=== PATIENT | female | born 1980 | race Caucasian/White ===

== ENCOUNTER 2017-06-23 14:49 | Inpatient (IN) | payer BC ==
[~2017-06-23] VITALS: Ht 157.5 cm; Wt 65.8 kg
[2017-06-23 15:14] VITALS: BP 137/77
--- NOTE | 2017-06-23 15:17 | NUR ---
37Y/F C/O LEFT BREAST PAIN WITH LARGE LUMP FOR 7 DAYS. PT STATES THE LUMP OPENED UP IN TWO PLACES AND STARTED TO DRAIN PINK PUS-LIKE SUBSTANCE YESTERDAY AND TODAY. DENIES FEVER. PT ADMITS SHE WENT TO URGENT CARE 1 WEEK AGO WHEN IT STARTED AND WAS PRESCRIBED ABX. PTS SYMPTOMS RESOLVED BUT CAME BACK 3 DAYS LATER. PATIENT STATES PAIN OF 9/10 AT THIS TIME; VSS; PATIENT POSITIONED FOR COMFORT; HOB ELEVATED; BEDRAILS UP X1; BED DOWN. ER MD MADE AWARE OF PT STATUS.
--- NOTE | 2017-06-23 15:20 | NUR ---
Patient being evaluated by physician at bedside.
[2017-06-23] MEDS ORDERED: NACL 0.9% 1,000 ML IV ONE ×2 (15:35→17:55)
[2017-06-23] MEDS ORDERED: VANCOMYCIN 1,000 MG in DEXTROSE 5% 250 ML IV ONE (15:35)
[2017-06-23] MEDS ORDERED: diphenhydrAMINE 50 MG/ML VIAL IVP ONE (15:35)
[2017-06-23] MEDS ORDERED: MORPHINE SULFATE 5 MG/ML VIAL IVP ONE ×2 (15:35→17:20)
[2017-06-23] MEDS ORDERED: PIPERACILLIN/TAZOBACTAM 3.375 GM in DEXTROSE 5% 50 ML IV ONE (15:35)
[2017-06-23] MEDS ORDERED: PIPERACILLIN/TAZOBACTAM 3.375 GM VIAL IV ONE ×2 (15:48→21:41)
[2017-06-23] MEDS ORDERED: VANCOMYCIN 1,000 MG VIAL ONE (15:48)
[2017-06-23 15:54] LABS: BASOPHILS # (AUTO) 0.1 K/uL (0.00-0.22); BASOPHILS % (AUTO) 1.5 % (0.0-2.0); EOSINOPHILS # (AUTO) 0.2 K/uL (0-0.4); EOSINOPHILS % (AUTO) 2.8 % (0.0-4.0); HEMATOCRIT 33.7 % (36-48); HEMOGLOBIN 11.4 g/dL (12.0-16.0); LYMPHOCYTES # (AUTO) 1.6 K/uL (2.5-16.5); LYMPHOCYTES % (AUTO) 19.9 % (20.5-51.1); MEAN CORPUSCULAR HEMOGLOBIN 32 pg (27-31); MEAN CORPUSCULAR HGB CONC 34 g/dL (33-37); MEAN CORPUSCULAR VOLUME 93.8 fL (80-94); MONOCYTES # (AUTO) 0.8 K/uL (0.8-1.0); MONOCYTES % (AUTO) 9.8 % (1.7-9.3); NEUTROPHILS # (AUTO) 5.2 K/uL (1.8-7.7); PLATELET COUNT (AUTO) 230 K/uL (140-450); RED BLOOD CELL COUNT(AUTO) 3.59 MIL/uL (4.20-5.40); RED CELL DISTRIBUTION WIDTH 12.7 % (11.6-13.7); WHITE BLOOD COUNT (AUTO) 7.9 K/uL (4.8-10.8)
[2017-06-23 16:02] LABS: PROTHROMBIN TIME 13.9 secs (10.8-13.4)
[2017-06-23 16:04] LABS: ANION GAP 11.2 (8-16); CARBON DIOXIDE 28.1 mmol/L (21-32); CREATININE 0.6 mg/dL (0.6-1.3); POTASSIUM 3.3 mmol/L (3.5-5.1)
[2017-06-23 16:10] LABS: TOTAL BILIRUBIN 0.3 mg/dL (0.0-1.0)
[2017-06-23] MEDS ORDERED: POTASSIUM CHLORIDE 10 MEQ TABER PO ONE ×3 (16:25→21:22)
[2017-06-23 16:35] LABS: APPEARANCE,URINE CLEAR (CLEAR); BILIRUBIN,URINE NEGATIVE (NEGATIVE); BLOOD, URINE TRACE-I (NEGATIVE); COLOR,URINE YELLOW (YELLOW); LEUKOCYTE ESTERASE ,URINE NEGATIVE (NEGATIVE); NITRITE, URINE NEGATIVE (NEGATIVE); UGLUCOSE NEGATIVE (NEGATIVE)
[2017-06-23 16:48] LABS: RBC,URINE 0-5 (RARE) /HPF (0-5); WBC,URINE 0-5 (RARE) /HPF (0-5)
[2017-06-23] MEDS ORDERED: LIDOCAINE 1% 500 MG/50 ML VIAL INJ SCH ×2 (17:20)
[2017-06-23] MEDS ORDERED: LIDOCAINE MPF 1% - **ER/OR** 15 ML ONE (17:27)
[2017-06-23] MEDS ORDERED: MORPHINE SULFATE 4 MG/ML SYR ONE ×2 (17:36→20:09)
[2017-06-23] MEDS ORDERED: CLINDAMYCIN 900 MG in DEXTROSE 5% 100 ML IV ONE (17:50)
[2017-06-23] MEDS ORDERED: ONDANSETRON 4 MG/2 ML VIAL IVP PRN (18:10)
[2017-06-23] MEDS ORDERED: ACETAMINOPHEN 325 MG TAB PO PRN (18:10)
[2017-06-23] MEDS ORDERED: CLINDAMYCIN 900 MG/6 ML VIAL IV ONE (18:17)
--- NOTE | 2017-06-23 18:37 | NUR ---
Patient will be admitted to care of dr. verma. Admited to tele . Will go to room 106a. Belongings list completed. Report to leon mejias.
[2017-06-23 18:40] VITALS: BP 109/70
--- NOTE | 2017-06-23 18:40 | NUR ---
PATIENT ARRIVED ON UNIT VIA [facility] WITH ER NURSE. PATIENT ALERT AND ABLE TO VERBALIZE NEEDS. AMBULATED TO BED FROM [facility]. PATIENT WITH DRESING TO LEFT BREAST. C/O 5/10 PAIN TO SITE . IV SITE TO RIGHT AC 20G STILL INSUFISNG NS 1000ML WIDE OPEN BOLUS ALONG WITH 165ML/HR OF VANCO AND TO FOLLOW WITH CLEOCIN ORDERED. MRSA SWAB COLLECTED. TELE MONITOR CONNECTED. SPOUSE AT BEDSIDE. ORIENTED TO ROOM. OFFERED PATIENT FOOD PATIENT ON REGULAR DIET.VSS. DISCUSSED PLAN OF CARE WITH PATIENT AT BEDSIDE. CALL LIGHT WITHIN REACH. WILL CONT TO MONITOR.
[2017-06-23 18:49] LABS: CHOL/HDL RATIO 2.9 (1-4.5); FREE T4 (FREE THYROXINE) 1.21 ng/dL (0.76-1.46); MAGNESIUM 1.7 mg/dL (1.8-2.4); PHOSPHORUS 3.3 mg/dL (2.5-4.9)
--- NOTE | 2017-06-23 19:00 | NUR ---
ENDORSED REPORT AT BEDSIDE TO SENIOR ORACLE DATABASE DEVELOPER NURSE FOR CONTINUITY OF CARE. PATIENT STABLE.
[2017-06-23] MEDS ORDERED: MORPHINE SULFATE 4 MG/ML SYR IVP PRN (19:05)
[2017-06-23 19:07] LABS: THYROID STIMULATING HORMONE 0.91 uIU/mL (0.34-3.74)
[2017-06-23 19:13] LABS: BARBITURATE, URINE NEG. ng/ml (NEG <=200); BENZODIAZEPINE, URINE NEG. ng/mL (NEG <=200); CANNABINOID, URINE NEG. ng/mL (NEG <=50); COCAINE, URINE NEG. ng/mL (NEG <=300); OPIATE, URINE POS. ng/mL (NEG <=2000); PHENCYCLIDINE SCREEN,URINE NEG. ng/mL (NEG <=25)
--- NOTE | 2017-06-23 19:30 | NUR ---
RECEIVED PT FROM FRANTZ RN PT AAOX4 AMBULATORY IV ON RT AC INFUSING WELL ANTIBIOTICS FROM ER, ON TELEMETRY ST ON LEFT BREAST CELLULITIS AND 2 OPEN WOUND AFTER BEEN DRAINAGE IN ER, PICTURE WILL BE TAKEN, PT IS ;ORIENTED TO THE FLOOR CALL LIGHT WITHIN REACH
--- NOTE | 2017-06-23 19:31 | NUR ---
THE TWO OPEN WOUND ON LEFT BREAST HAVE STRIP PACKAGE INSIDE AND THERE ARE DRAINING SEROSANGUINEOUS
[2017-06-23] MEDS ORDERED: MAGNESIUM OXIDE 400 MG TAB PO ONE (19:50)
--- NOTE | 2017-06-23 20:09 | NUR ---
DR LEON IS HERE AND ORDER TO GIVE MORPHINE 2 MG IVP, PHARMACY TO VERIFY
[2017-06-23] MEDS ORDERED: CLINDAMYCIN 600 MG in DEXTROSE 5% 50 ML IV SCH (21:00)
[2017-06-23] MEDS: PIPER/TAZO 3.375GM/D5W PREMIX 50 ML IV SCH ×2 (21:00→21:49)
[2017-06-23] MEDS: DOCUSATE SODIUM 100 MG GELCAP PO SCH (21:28)
[2017-06-24] VITALS: BP 119/65
[2017-06-24] MEDS: MORPHINE SULFATE 4 MG/ML SYR IVP PRN ×2 (00:16→04:37)
--- NOTE | 2017-06-24 00:45 | NUR ---
PT AMBULATES TO THE RESTROOM, VOIDING WELL, NOT PAIN NOTED ON TELEMETRY SR
[2017-06-24] MEDS: HYDROcodone/APAP 7.5/325 MG 1 TAB PO PRN ×4 (02:18→18:35)
[2017-06-24 04:00] VITALS: BP 108/64
--- NOTE | 2017-06-24 04:00 | NUR ---
SPONGE BATH GIVEN, LINEN CHANGED ON TELE SR
[2017-06-24] MEDS ORDERED: PIPERACILLIN/TAZOBACTAM 3.375 GM VIAL IV ONE (04:24)
[2017-06-24] MEDS: PIPER/TAZO 3.375GM/D5W PREMIX 50 ML IV SCH ×2 (04:40→12:11)
[2017-06-24] MEDS ORDERED: CLINDAMYCIN 600 MG/4 ML VIAL ONE (05:04)
--- NOTE | 2017-06-24 05:22 | NUR ---
AFTER PAIN MEDIC GIVEN PT SLEEPS QUIET NOT DISTRESS NOTED
[2017-06-24] MEDS: CLINDAMYCIN 600 MG in DEXTROSE 5% 50 ML IV SCH ×2 (05:46→12:48)
[2017-06-24] MEDS ORDERED: MORPHINE SULFATE 4 MG/ML SYR IVP PRN (06:00)
--- NOTE | 2017-06-24 06:10 | NUR ---
PT RESTING ON BED SLEEPING DR BENDER WAS INFORMED ABOUT PT PAIN MEDICATION
--- NOTE | 2017-06-24 07:30 | NUR ---
ENDORSEMENT RECEIVED FROM LICENSED NURSING ASSISTANT NURSE. PATIENT AWAKE, ALERT. RESPIRATION EVEN, UNLABOR ON ROOM AIR. SKIN DRY AND WARM. IV PATENT AND INTACT. LEFT BREAST WOUND WAS COVERED WITH DRESSING. COMPLAINED OF LEFT BREAST PAIN 09/15, WILL MEDICATE PER ORDER. DENIED SOB, N/V AT THIS TIME. PLAN OF CARE WAS DISCUSSED WITH PATIENT. BED AT LOW POSITION, SIDE RAILS UP. CALL LIGHT WITHIN REACH
[2017-06-24 08:00] VITALS: BP 130/79
[2017-06-24] MEDS: DOCUSATE SODIUM 100 MG GELCAP PO SCH (08:42)
[2017-06-24] MEDS ORDERED: LACTOBACILLUS RHAMNOSUS GG 1 EACH CAP PO SCH (09:00)
--- NOTE | 2017-06-24 10:00 | NUR ---
PATIENT AWAKE, ALERT. PAIN MED WAS GIVEN PER ORDER. PATIENT AMBULATES AROUND THE HALLWAY WITH FAMILY, STEADY GAIT. NO DISTRESS NOTED AT THIS TIME
--- NOTE | 2017-06-24 11:40 | NUR ---
PATIENT AWAKE, ALERT. RESPIRATION EVEN, UNLABOR ON ROOM AIR. NO DISTRESS NOTED AT THIS TIME. FAMILY AT BEDSIDE. AUTOMOTIVE DISMANTLER WAS REMOVED PER ORDER. CALL LIGHT WITHIN REACH
--- NOTE | 2017-06-24 14:01 | NUR ---
PATIENT HAS BEEN SCREENED AND CATEGORIZED LOW NUTRITION RISK. PATIENT WILL BE SEEN WITHIN 7 DAYS OF ADMISSION. 06/30/[address]
--- NOTE | 2017-06-24 15:16 | NUR ---
PATIENT AWAKE, ALERT, WATCHING TV COMFORTABLY. RESPIRATION EVEN, UNLABOR ON ROOM AIR. NO DISTRESS NOTED AT THIS TIME. CALL LIGHT WITHIN REACH
--- NOTE | 2017-06-24 15:18 | NUR ---
RECEIVED A CALL FROM [employer]REAT SUPPORT SPECIALIST, THIS MORNING. FROM [facility], THE PATIENT HAS BEEN APPROVED FOR 2 DAYS TIL THE . IF PATIENT HERE ON THE , FAX REVIEW TO [phone] PHONE [phone] VALERIO
[2017-06-24 16:00] VITALS: BP 111/54
[2017-06-24 17:08] LABS: BASOPHILS # (AUTO) 0.1 K/uL (0.00-0.22); BASOPHILS % (AUTO) 1.4 % (0.0-2.0); EOSINOPHILS # (AUTO) 0.4 K/uL (0-0.4); EOSINOPHILS % (AUTO) 6.4 % (0.0-4.0); HEMATOCRIT 30.7 % (36-48); HEMOGLOBIN 10.3 g/dL (12.0-16.0); LYMPHOCYTES # (AUTO) 1.3 K/uL (2.5-16.5); LYMPHOCYTES % (AUTO) 23.1 % (20.5-51.1); MEAN CORPUSCULAR HEMOGLOBIN 32 pg (27-31); MEAN CORPUSCULAR HGB CONC 34 g/dL (33-37); MEAN CORPUSCULAR VOLUME 93.9 fL (80-94); MONOCYTES # (AUTO) 0.7 K/uL (0.8-1.0); MONOCYTES % (AUTO) 11.9 % (1.7-9.3); NEUTROPHILS # (AUTO) 3.3 K/uL (1.8-7.7); NEUTROPHILS % (AUTO) 57.2 % (42.2-75.2); PLATELET COUNT (AUTO) 226 K/uL (140-450); RED BLOOD CELL COUNT(AUTO) 3.28 MIL/uL (4.20-5.40); RED CELL DISTRIBUTION WIDTH 13.3 % (11.6-13.7); WHITE BLOOD COUNT (AUTO) 5.8 K/uL (4.8-10.8)
[2017-06-24 17:29] LABS: ANION GAP 11.4 (8-16); CARBON DIOXIDE 27.2 mmol/L (21-32); CREATININE 0.6 mg/dL (0.6-1.3); POTASSIUM 3.6 mmol/L (3.5-5.1)
[2017-06-24 17:32] LABS: MAGNESIUM 1.4 mg/dL (1.8-2.4); PHOSPHORUS 3.6 mg/dL (2.5-4.9)
--- NOTE | 2017-06-24 17:45 | NUR ---
DR. CRUMP WAS MADE AWARE OF MG LEVEL OF 1.4, WILL MEDICATE PER ORDER
[2017-06-24 17:54] LABS: PROTHROMBIN TIME 10.7 secs (10.8-13.4)
--- NOTE | 2017-06-24 18:00 | NUR ---
PATIENT AWAKE, ALERT, EATING DINNER AND WATCHING TV COMFORTABLY. RESPIRATION EVEN, UNLABOR ON ROOM AIR. IV PATENT AND INTACT. NO DISTRESS NOTED AT THIS TIME. FAMILY AT BEDSIDE. CALL LIGHT WITHIN REACH
[2017-06-24] MEDS ORDERED: MAG SULF 2000 MG/WATER PREMIX 100 ML IV ONE (18:20)
--- NOTE | 2017-06-24 19:19 | NUR ---
ENDORSEMENT GIVEN TO THE INSURANCE COORDINATOR NURSE. PATIENT IS STABLE AT THIS TIME
--- NOTE | 2017-06-24 19:20 | NUR ---
RECD. RESTING IN BED, AWAKE, A/OX4. MG RIDER INFUSING AT 25 ML/HR, RIGHT AC G20. LEFT BREAST INCISION COVERED WITH DRESSING DRY AND INTACT. ON BILATERAL LEG SEQUENTIALS. PLAN OF CARE FOR THE SHIFT DISCUSSED. VERBALIZED UNDERSTANDING. PAIN IN THE LEFT BREAST 03/18, WAS MEDICATED BY AM NURSE, WILL MEDICATE ORDERED. BOY FRIEND AT THE BEDSIDE.
--- NOTE | 2017-06-24 19:35 | NUR ---
WANTS TO GO HOME KIMBERLY, ONE OF HER CHILDREN IS SICK. EXPLAINED THAT HER MAGNESIUM IS LOW AND SHE NEEDS TO HAVE THE MG RIDER, BESIDES SHE NEEDS ANTIBIOTICS TO PREVENT INFECTION. STILL VERY INSISTENT THAT SHE WANTS TO TAKE GOOD CARE OF HER CHILD AND SHE WANTS TO GO HOME, WILL SIGN AMA FORM.
--- NOTE | 2017-06-24 19:45 | NUR ---
VS TAKEN - T - 97.6, BP - 114/56, RR - 18, O2 SAT - 95%. DENIES PAIN 0/10. SIGNED AMA PAPERS. INFORMED DR. BENDER.
--- NOTE | 2017-06-24 19:50 | NUR ---
IV DISCONTINUED. PATIENT INSTRUCTED TO GATHER ALL HER BELONGINGS AND SINCE WILL LEAVE AMA, NOBODY WILL WHEELED HER OUT. VERBALIZED UNDERSTANDING.
--- NOTE | 2017-06-24 20:00 | NUR ---
AMBULATED IN STABLE CONDITION WITH MALE FRIEND TO LOBBY TO GO HOME AGAINST MEDICAL ADVICE.
[2017-06-25 06:19] LABS: HEPATITIS A ANTIBODY IGM Negative (Negative); HEPATITIS B CORE AB TOTAL Negative (Negative); HEPATITIS B SURFACE ANTIBODY Non Reactive (.); HEPATITIS B SURFACE ANTIGEN Negative (Negative)
--- NOTE | 2017-06-25 08:47 | NUR ---
WOUND CARE EVALUATION NOT DONE, PT. DISCHARGED.
[2017-06-25 12:31] LABS: FOLIC ACID 7.1 ng/mL (>3.0)
--- NOTE | 2017-06-25 14:54 | NUR ---
CM NOTE DISCHARGE SUMMARY FAXED TO [facility] / FAX# [phone]
== END 2017-06-24 20:00 | disposition left against medical advice (07) | DRG 600 ==
LOC: MED 14:49 → MTU 18:16
PROVIDERS: ADMIT Family Medicine Sports Medicine; ATTEND Family Medicine Sports Medicine
PROC: 0H9U0ZZ Drainage of Left Breast, Open Approach (ICD-10-PCS; principal; 2017-06-23)
DX: N61.1 Abscess of the breast and nipple (principal); E44.0 Moderate protein-calorie malnutrition; D64.9 Anemia, unspecified; E83.42 Hypomagnesemia; E87.6 Hypokalemia; F17.210 Nicotine dependence, cigarettes, uncomplicated; N61.0 Mastitis without abscess; F11.90 Opioid use, unspecified, uncomplicated; Z53.21 Procedure and treatment not carried out due to patient leaving prior to being seen by health care provider
CPT/HCPCS: 36415; 71045; 71260; 76705; 80048; 80053; 80305; 81001; 82150; 82550; 82553; 82607; 82728; 82746; 83036; 83540; 83605; 83690; 83735; 83880; 84100; 84439; 84443; 84484; 85025; 85045; 85610; 85730; 86704; 86706; 86708; 86709; 86803; 87040; 87070; 87075; 87081; 87186; 87340; 93005; 96365; 96366; 96367; 99285; J1200; J2001; J2270; J2543; J3370; J3475; J3490; J7030; J7060; Q0092; Q9967

== ENCOUNTER 2017-11-17 01:53 | Emergency (ER) | payer BC, OTHER ==
[~2017-11-17] VITALS: Ht 154.9 cm; Wt 68.0 kg
[2017-11-17 02:03] VITALS: BP 119/91
--- NOTE | 2017-11-17 02:07 | NUR ---
PT AMBULATED TO LOBY WITH VSS.
--- NOTE | 2017-11-17 04:26 | NUR ---
PT TO ER BED 10
[2017-11-17 04:45] VITALS: BP 117/71
--- NOTE | 2017-11-17 04:45 | NUR ---
37/F CAME IN WITH FAMILY/FRIEND, C/O 12/16 RLE PAIN, X3 DAYS. APPROXIMATELY 1.5 INCH X 1.5 INCH RED RAISED ABSCESS/CELLULITIS WITH PUS, SURROUNDING REDNESS AND SWELLING. RLE EDEMA PITTING +2. PT DENIES TRAUMA, INJURY OR FEELING INSECT BITE. PT DENIES CP, SOB, N/V. PT REPORTS SUBJECTIVE FEVER, AFEBRILE AT THIS TIME. AOX4, AMBULATORY, RR EVEN AND UNLABORED. DENIES MED HX DENIES RX
--- NOTE | 2017-11-17 04:46 | NUR ---
DRESSING ON RLE IN PLACE.
--- NOTE | 2017-11-17 05:45 | NUR ---
PATIENT LEFT WITHOUT BEING SEEN BY DR. PORTILLO. NO FURTHER CARE PROVIDED FOR PATIENT.
== END 2017-11-17 05:45 | disposition left against medical advice (07) ==
LOC: MED 01:53
DX: L02.415 Cutaneous abscess of right lower limb (principal); Z53.21 Procedure and treatment not carried out due to patient leaving prior to being seen by health care provider

== ENCOUNTER 2019-11-23 22:37 | Observation (INO) | payer BC, OTHER ==
[~2019-11-23] VITALS: Ht 154.9 cm; Wt 72.6 kg
[2019-11-23 22:42] VITALS: BP 157/113
--- NOTE | 2019-11-23 22:45 | NUR ---
ambulated to bed 3 with steady gait.
[2019-11-23] MEDS ORDERED: ASPIRIN 81 MG TAB.CHEW PO ONE (22:50)
--- NOTE | 2019-11-23 22:50 | NUR ---
39 YO F BIB SELF FOR C/O CP X 1 WEEK, NON RADIATING. 8/10 PRESSURE. PT AAOX4, FOLLOWING COMMANDS, NSR, PALPABLE EQUAL PULSES. LUNGS CLEAR EVEN UNLABORED. ABD SOFT NON DISTENDED. DENIES N/V/D. SKIN INTACT. GURNEY LOCKED IN LOWEST POSITION WILL CONTINUE TO OBSERVE
--- NOTE | 2019-11-23 23:15 | NUR ---
EKG PERFORMED AT BEDSIDE. EKG READS SINUS RHYTHM @ 80
[2019-11-23 23:28] LABS: BASOPHILS % (AUTO) 0.2 % (0.0-2.0); EOSINOPHILS # (AUTO) 0.1 K/uL (0-0.4); EOSINOPHILS % (AUTO) 0.9 % (0.0-4.0); HEMOGLOBIN 12.6 g/dL (12.0-16.0); LYMPHOCYTES # (AUTO) 1.4 K/uL (2.5-16.5); LYMPHOCYTES % (AUTO) 13.3 % (20.5-51.1); MEAN CORPUSCULAR HEMOGLOBIN 32 pg (27-31); MEAN CORPUSCULAR HGB CONC 33 g/dL (33-37); MEAN CORPUSCULAR VOLUME 95.3 fL (80-94); MONOCYTES # (AUTO) 0.7 K/uL (0.8-1.0); MONOCYTES % (AUTO) 7.1 % (1.7-9.3); NEUTROPHILS # (AUTO) 8.2 K/uL (1.8-7.7); NEUTROPHILS % (AUTO) 78.5 % (42.2-75.2); PLATELET COUNT (AUTO) 219 K/uL (140-450); RED BLOOD CELL COUNT(AUTO) 3.99 MIL/uL (4.20-5.40); RED CELL DISTRIBUTION WIDTH 12.9 % (11.6-13.7); WHITE BLOOD COUNT (AUTO) 10.4 K/uL (4.8-10.8)
[2019-11-23] MEDS ORDERED: ONDANSETRON 4 MG/2 ML VIAL IVP ONE (23:30)
[2019-11-23] MEDS ORDERED: MORPHINE SULFATE 4 MG/ML SYR IVP ONE (23:30)
[2019-11-23 23:44] LABS: ALBUMIN 3.2 g/dL (3.4-5.0); ANION GAP 10.7 (8-16); CARBON DIOXIDE 28.7 mmol/L (21-32); CREATININE 0.6 mg/dL (0.6-1.3); POTASSIUM 4.4 mmol/L (3.5-5.1); TOTAL BILIRUBIN 0.3 mg/dL (0.0-1.0)
[2019-11-24] MEDS ORDERED: NACL 0.9% 1,000 ML IV ONE
[2019-11-24] MEDS ORDERED: HYDROmorphone PFS 2 MG/ML SYR IVP ONE ×3 (00:40→02:40)
[2019-11-24] MEDS ORDERED: metroNIDAZOLE 500 MG/NS PREMIX 100 ML IV ONE (02:15)
[2019-11-24] MEDS ORDERED: cefTRIAXone 1,000 MG VIAL ONE (02:17)
[2019-11-24] MEDS ORDERED: KETOROLAC 30 MG/ML VIAL IVP ONE (02:20)
[2019-11-24 02:50] LABS: PROTHROMBIN TIME 9.6 secs (10.8-13.4)
[2019-11-24] MEDS ORDERED: ONDANSETRON 4 MG/2 ML VIAL IVP PRN (03:05)
[2019-11-24] MEDS ORDERED: MORPHINE SULFATE 4 MG/ML SYR IVP PRN (03:05)
[2019-11-24] MEDS ORDERED: HYDROcodone/APAP 5/325 MG 1 TAB TAB PO PRN (03:05)
[2019-11-24] MEDS ORDERED: ACETAMINOPHEN 325 MG TAB PO PRN (03:05)
--- NOTE | 2019-11-24 03:17 | NUR ---
pt resting in [facility]; pt states pt @ 07/16, tolerable. denies n/v/d. will continue to observe.
--- NOTE | 2019-11-24 03:37 | NUR ---
JACK COVID SWAB COLLECTED AND WALKED TO LAB.
--- NOTE | 2019-11-24 04:45 | NUR ---
RECEIVED CONTINUITY OF CARE FROM MIGUEL REYES. PT IS RESTING IN BED BREATHING SPONTANEOUSLY ON ROOM AIR. PT IS A/OX4, SKIN IS WARM, DRY, INTACT. IV SITE IN RIGHT UPPER ARM, 22G, ASYMPTOMATIC, INTACT, AND PATENT. PT IS ABLE TO MAKE NEEDS KNOW. DISCUSSED PLAN OF CARE WITH PT. ORIENTED PT TO ROOM, CALL LIGHT, AND STAFF. MRSA SCREEN COMPLETE. NS INFUSING AT 60ML/HR. SAFETY PRECAUTIONS IN PLACE. CALL LIGHT WITHIN REACH. WILL CONTINUE TO MONITOR.
[2019-11-24] MEDS ORDERED: PIPERACILLIN/TAZOBACTAM 2.25 GM VIAL IV ONE (04:53)
--- NOTE | 2019-11-24 04:54 | NUR ---
Patient will be admitted to care of . Admited to [facility]. Will go to room 125A. Belongings list completed. Report to Luis REYES. Addendum: 11/24/19 at 0501 by LOLITA ADMITTED TO DR. WERNER
[2019-11-24] MEDS: NACL 0.9% 1,000 ML IV SCH ×2 (05:25→15:49)
[2019-11-24] MEDS: PIPERACILLIN/TAZOBACTAM 2.25 GM in DEXTROSE 5% 50 ML IV SCH ×3 (05:38→21:16)
--- NOTE | 2019-11-24 06:39 | NUR ---
MEDICATED PT FOR PAIN PER ORDER. WILL CONTINUE TO MONITOR.
--- NOTE | 2019-11-24 06:46 | NUR ---
SPOKE WITH NURSE GAGE AT [facility] IN [place] AND CONFORMED THAT PT IS RECEIVING 1202MG METHADONE DAILY. LAST DOSE WAS GIVEN ON 11/23/2019. Addendum: 11/24/19 at 0700 by Luis Paige RN CORRECT METHADONE DOSE IS 120MG DAILY.
[2019-11-24] MEDS ORDERED: DOL10 PO (06:52)
--- NOTE | 2019-11-24 07:20 | NUR ---
RECEIVED PATIENT FROM NIGHT NURSE. PATIENT AWAKE, ALERT, ORIENTED X4. ABLE TO MAKE NEEDS KNOWN. RESP EVEN AND UNLABORED ON ROOM AIR. PATIENT C/O PAIN TO ABD. WILL MEDICATE APPROPRIATELY. IV ACCESS INTACT AND PATENT INFUSING WELL. PLAN OF CARE DISCUSSED WITH PATIENT. PATIENT VERBALIZED UNDERSTANDING. SAFETY MEASURES IN PLACE, CALL LIGHT WITHIN REACH. WILL CONTINUE TO MONITOR.
[2019-11-24 08:00] VITALS: BP 106/70
--- NOTE | 2019-11-24 08:50 | NUR ---
PATIENT HAS BEEN SCREENED AND CATEGORIZED LOW NUTRITION RISK. PATIENT WILL BE SEEN WITHIN 7 DAYS OF ADMISSION. 11/30/[address]
[2019-11-24] MEDS: HYDROmorphone 1 MG/ML AMP IVP PRN ×4 (09:17→21:19)
--- NOTE | 2019-11-24 09:23 | NUR ---
PATIENT C/O SEVERE PAIN TO ABD. MORPHINE GIVEN PREVIOUSLY AND NOT ABLE TO GIVE JUST YET. DR FAUSTIN WAS CALLED AND RECEIVED TELEPHONE ORDER TO D/C MORPHINE 4MG IVP AND GIVE DILAUDID 1MG IVP PRN Q4H FOR SEVERE PAIN. TELEPHONE ORDER READ BACK AND CONFIRMED. CARRIED OUT.
--- NOTE | 2019-11-24 11:45 | NUR ---
PATIENT RESTING IN BED, PAIN IS TOLERABLE. DR WINTERS CONSULT FOR ACUTE CHOLECYSTITIS. PATIENT IS MADE AWARE OF THE CONSULTATION AND WILL FOLLOW UP WITH DR. WINTERS. RESP EVEN AND UNLABORED. PATIENT AMBULATED TO THE BATHROOM WITH STEADY GAIT. ABLE TO MAKE NEEDS KNOWN. CALL LIGHT WITHIN REACH. WILL CONTINUE TO MONITOR.
--- NOTE | 2019-11-24 13:50 | NUR ---
PT GIVEN DILAUDID FOR SEVERE PAIN TO ABD 9/10 WITH FACIAL GRIMACE. DISTRACTION ACTIVITIES AND DEEP BREATHING ENCOURAGED. PATIENT VERBALIZED UNDERSTANDING. CALL LIGHT WITHIN REACH. WILL CONTINUE TO MONITOR.
--- NOTE | 2019-11-24 14:13 | NUR ---
DISCHARGE PLANNING: THIS IS A 39 Y/O FEMALE PATIENT FROM HOME, WHO CAME IN DUE TO RUQ AND RIGHT MID BACK PAIN. PAST MEDICAL HISTORY INCLUDE METHADONE USE. INITIAL DIAGNOSIS OF ACUTE CHOLECYSTITIS. ABDOMINAL US SHOWED CHOLELITHIASIS WITH CIRCUMFERENTIAL GALLBLADDER WALL THICKENING SUSPICIOUS FOR ACUTE CHOLECYSTITIS. COMMON BILE DUCT WAS MILDLY DILATED MEASURING 7MM. CURRENT LABS INCLUDE WBC 10.4, H/H 12.6/38.0, NA/K 137/4.4, BUN/CREA 9/0.6, LIPASE 43, ALB 3.2, AST/ALT 54/101. ON ZOSYN. SURGICAL CONSULT IN PLACE, NOT SEEN YET. DC PLAN PENDING ON THE PATIENT'S RESPONSE TO TREATMENT. Addendum: 11/24/19 at 1431 by Kaya Schmidt CM PER M[employer] CHILD STUDY TEAM DIRECTOR, PATIENT'S INSURANCE NOW IS IEHP DIRECT. Addendum: 11/24/19 at 1436 by Kaya Schmidt CM PER DR. WERNER WILL KEEP PATIENT ON OBS FOR NOW AND WILL EVALUATE TOMORROW. Addendum: 11/25/19 at 1317 by Kaya Schmidt CM CURRENTLY IN OR FOR [facility]ZA UNDER DR. BARBER Addendum: 11/25/19 at 1517 by Kaya Schmidt CM PER DR. WERNER, WILL KEEP ON OBS. PLAN IS TO DC PATIENT TOMORROW.
[2019-11-24 16:00] VITALS: BP 130/74
--- NOTE | 2019-11-24 18:04 | NUR ---
PATIENT WENT TO RAD FOR CT ABD/PELV W/O CONTRAST. PATIENT LEFT IN STABLE CONDITION
--- NOTE | 2019-11-24 18:25 | NUR ---
PATIENT CAME BACK FROM CT IN STABLE CONDITION. NO NOTED DISTRESS AT THIS TIME. RESP EVEN AND UNLABORED. CALL LIGHT WITHIN REACH. WILL CONTINUE TO MONITOR.
--- NOTE | 2019-11-24 19:25 | NUR ---
ENDORSED PATIENT TO NIGHT NURSE. PATIENT IN STABLE CONDITION.
--- NOTE | 2019-11-24 19:26 | NUR ---
RECEIVED REPORT FROM AM RN FOR CONTINUITY OF CARE. PT IS STABLE CALM IN BED. WILL CONTINUE WITH POC.
--- NOTE | 2019-11-24 21:30 | NUR ---
PT HAD BELONGINGS DROPPED OFF IN LOBBY BY FRIEND/BOYFRIEND WHICH INCLUDED BAG OF CHOCOLATES, NEW PJ, SOCKS, SMALL BOTTLE OF LOTION, SHAMPOO AND CONDITION AND TOOTHBRUSH KIT. PT C/O PAIN 8/10 TO UPPER ABDOMINAL AREA. PT WAS GIVEN DILAUDID 1MG PER MD ORDER AT 2130. CONTINUES TO RECEIVE IVF AND TOLERATING IVPB ANTIBIOTIC WITH NO ISSUES. SAFETY MEASURES IN PLACE WILL CONTINUE TO MONITOR, B/P 124/82, 84, 98% RA.
--- NOTE | 2019-11-24 23:08 | NUR ---
PT IS RESTING IN BED IN NO DISTRESS. CALL LIGHT WITHIN REACH. WILL CONTINUE TO MONITOR.
[2019-11-25] VITALS: BP 129/72
[2019-11-25] MEDS: HYDROmorphone 1 MG/ML AMP IVP PRN ×4 (01:48→21:00)
--- NOTE | 2019-11-25 02:00 | NUR ---
PT C/O ABDOMINAL PAIN 10/16, DILAUDID 1 MG IVP GIVEN AT 0148 PER MD ORDER. V/S: 132/75, 82. PT EDUCATED ON ALTERNATIVE PAIN MGMT MEASURES. SAFETY MEASURES IN PLACE.
[2019-11-25] MEDS: PIPERACILLIN/TAZOBACTAM 2.25 GM in DEXTROSE 5% 50 ML IV SCH ×3 (04:08→20:59)
--- NOTE | 2019-11-25 04:40 | NUR ---
PT IS RESTING IN BED, TOLERATING IVPB WITH NO ISSUES. MUSCLES RELAXED. WILL CONTINUE TO MONITOR.
[2019-11-25 05:38] LABS: BASOPHILS % (AUTO) 0.3 % (0.0-2.0); EOSINOPHILS # (AUTO) 0.1 K/uL (0-0.4); EOSINOPHILS % (AUTO) 1.2 % (0.0-4.0); HEMATOCRIT 33.6 % (36-48); HEMOGLOBIN 11.3 g/dL (12.0-16.0); LYMPHOCYTES # (AUTO) 1.6 K/uL (2.5-16.5); LYMPHOCYTES % (AUTO) 19.8 % (20.5-51.1); MEAN CORPUSCULAR HEMOGLOBIN 32 pg (27-31); MEAN CORPUSCULAR HGB CONC 34 g/dL (33-37); MONOCYTES # (AUTO) 0.8 K/uL (0.8-1.0); MONOCYTES % (AUTO) 9.7 % (1.7-9.3); NEUTROPHILS # (AUTO) 5.6 K/uL (1.8-7.7); PLATELET COUNT (AUTO) 205 K/uL (140-450); RED BLOOD CELL COUNT(AUTO) 3.54 MIL/uL (4.20-5.40); RED CELL DISTRIBUTION WIDTH 12.8 % (11.6-13.7); WHITE BLOOD COUNT (AUTO) 8.1 K/uL (4.8-10.8)
[2019-11-25 05:57] LABS: ALBUMIN 2.6 g/dL (3.4-5.0); ANION GAP 11.9 (8-16); CARBON DIOXIDE 24.7 mmol/L (21-32); CREATININE 0.5 mg/dL (0.6-1.3); POTASSIUM 3.6 mmol/L (3.5-5.1); TOTAL BILIRUBIN 0.3 mg/dL (0.0-1.0)
--- NOTE | 2019-11-25 06:34 | NUR ---
RESTING NO C/O AT THIS TIME. ALL NEEDS MET. SAFETY MEASURES IN PLACE. PT AMBULATED TO RESTROOM X 3 WITH STEADY GAIT. WILL CONTINUE TO MONITOR.
[2019-11-25] MEDS: NACL 0.9% 1,000 ML IV SCH ×2 (06:36→15:15)
--- NOTE | 2019-11-25 07:24 | NUR ---
REPORT GIVEN TO AM RN FOR CONTINUITY OF CARE. PT IS STABLE LAYING IN BED IN NO DISTRESS
--- NOTE | 2019-11-25 07:25 | NUR ---
RECEIVED REPORT FROM NIGHT NURSE FOR CONTINUITY OF CARE, PT IS STABLE, NO SIGNS OF DISTRESS NOTED, PT ASLEEP, RESPIRATIONS ARE EVEN AND UNLABORED ON ROOM AIR, PT HAS RIGHT UA 22G IV INFUSING NS AT 80ML/H, PT NPO FOR SURGERY TODAY, BED IN LOW POSITION, SAFETY MEASURES IN PLACE, CALL LIGHT WITHIN REACH,
[2019-11-25 08:00] VITALS: BP 122/64
--- NOTE | 2019-11-25 08:45 | NUR ---
ADMINISTERED DILAUDID FOR 7/10 PAIN OF SHARP UPPER ABD PAIN THAT RADIATES TO BACK, MEDICATION EDUCATION PROVIDED, PT VERBALIZED UNDERSTANDING, PT TOLERATED WELL, PT IS STABLE, NO SIGNS OF DISTRESS NOTED, CALL LIGHT WITHIN REACH.
--- NOTE | 2019-11-25 09:50 | NUR ---
PT OFF UNIT FOR SURGERY.
[2019-11-25] MEDS ORDERED: ROCURONIUM 50 MG/5 ML VIAL IV ONE (12:11)
[2019-11-25] MEDS ORDERED: SUGAMMADEX SODIUM 200 MG/2 ML VIAL IV ONE (12:11)
[2019-11-25] MEDS ORDERED: DEXAMETHASONE 4 MG/ML VIAL ONE (12:11)
[2019-11-25] MEDS ORDERED: ONDANSETRON 4 MG/2 ML VIAL ONE (12:11)
[2019-11-25] MEDS ORDERED: MIDAZOLAM 2 MG/2 ML VIAL ONE (12:11)
[2019-11-25] MEDS ORDERED: fentaNYL citrate 0.05 MG/ML VIAL ONE (12:11)
[2019-11-25] MEDS ORDERED: DESFLURANE 240 ML BTL INH ONE (12:11)
[2019-11-25] MEDS ORDERED: PROPOFOL 200 MG/20 ML VIAL IV ONE (12:11)
[2019-11-25] MEDS ORDERED: LIDOCAINE MPF 2% 100 MG/5 ML VIAL INJ ONE (12:11)
[2019-11-25] MEDS ORDERED: BUPIVACAINE-MPF 0.25% 30 ML VIAL INJ ONE (12:17)
[2019-11-25] MEDS ORDERED: LIDOCAINE 1% 500 MG/50 ML VIAL ONE (12:17)
--- NOTE | 2019-11-25 12:37 | NUR ---
LATE ENTRY--CONFRIMED WITH RN NORMAL SALINE END TIME IS 0100 AND METRONIDAZOLE END TIME IS 0315.
[2019-11-25] MEDS: LACTATED RINGERS 1,000 ML IV SCH ×2 (12:58→21:01)
[2019-11-25] MEDS ORDERED: HYDROmorphone 1 MG/ML AMP IVP PRN ×2 (13:00)
[2019-11-25] MEDS ORDERED: ONDANSETRON 4 MG/2 ML VIAL IVP PRN (13:00)
[2019-11-25] MEDS ORDERED: MEPERIDINE 25 MG/ML SYR IVP PRN (13:00)
--- NOTE | 2019-11-25 13:16 | NUR ---
0950 PT OFF UNIT FOR SURGERY
[2019-11-25] MEDS: HYDROmorphone PFS 2 MG/ML SYR ONE ×4 (14:09→14:40)
--- NOTE | 2019-11-25 15:05 | NUR ---
PT BACK IN THE ROOM FROM SURGERY, PT HAS A LEFT FOOT IV 22G INFUSING NORMAL SALINE, PT HAS 4 ABDOMINAL INCISION CLOSED WITH DERMABOND, OPEN TO AIR, PT IS STABLE, NO SIGNS OF RESPIRATORY DISTRESS NOTED, WILL CONTINUE TO MONITOR VITALS SIGNS PER PROTOCOL.
--- NOTE | 2019-11-25 15:21 | NUR ---
ADMINISTERED SCHEDULED MEDICATION, MEDICATION EDUCATION PROVIDED, PT IS STABLE, NO SIGNS OF DISTRESS NOTED, CALL LIGHT WITHIN REACH.
[2019-11-25 16:00] VITALS: BP 124/75
--- NOTE | 2019-11-25 16:06 | NUR ---
ADMINISTERED DILAUDID FOR PAIN 10/10 FOR ABDOMINAL SURGICAL SITE, MEDICATION EDUCATION PROVIDED, PT TOLERATED WELL, PT IS STABLE, CALL LIGHT WITHIN REACH.
--- NOTE | 2019-11-25 18:45 | NUR ---
NOTIFIED DR GUNTER PT IS CONCERN SHE IS NOT RECEIVING METHADONE SHE IS EXPERIENCING WITHDRAWALS AND DID NOT NOTIFIED NURSE OR DOCTOR ON ADMISSION THAT IF SHE STOPS RECEIVING METHADONE FOR 3 DAYS SHE GETS DROP FROM THE PROGRAM AND WOULD HAVE TO RE-APPLY AND THAT IT IS A LONG PROCESS. PT IS ALSO EXPERIENCING GAS PAIN AFTER HER SURGERY. RECEIVED TORB FROM DR GUNTER TO RESUME METHADONE AND GIVE GAS X PRN Q6H FOR GAS PAIN, WILL INPUT ORDER AND CARRY IT OUT.
--- NOTE | 2019-11-25 19:30 | NUR ---
ENDORSE PT TO NIGHT NURSE FOR CONTINUITY OF CARE, PT IS STABLE
[2019-11-25] MEDS: SIMETHICONE 40 MG/0.6 ML PO PRN (20:09)
--- NOTE | 2019-11-25 20:10 | NUR ---
RECEIVED BEDSIDE REPORT EARLIER FROM JUMANA REGARDING THE PT FOR CONTINUITY OF CARE. PT IS S/P LAP CHOLECYSTECTOMY WITH 4 LAP SITES, ALL C/D/I. NO BLEEDING NOTED. PT IS A/A/OX4, LAYING IN BED COMPLAINING THAT SHE HAS ABDOMINAL PAIN AND COMPLAINING THAT NO ONE CAME TO HELP HER RIGHT AWAY AND STATED " I URINATED IN MY CUPS AND I THROW THE WATER FROM THE CUP ON THE FLOOR". I SPOKE TO THE PT AND TOLD HER TO CALM DOWN AND I WILL REVIEW HER MEDS AND I WILL GIVE THE PRN MEDS IF ITS DUE. PT REQUESTED TO HAVE HER DILAUDID.PT MADE AWARE THAT HER DILAUDID IS NOT DUE YET FOR ANOTHER HOUR AND INFORMED THE PT IF SHE WANT SHE CAN HAVE THE NORCO. PT AGREED AND GAVE HER THE NORCO & MYLICON ORDERED. OTHERWISE NO OTHER COMPLAIN. NOT IN ANY DISTRESS. EDUCATED THE PT THAT SHE NEED TO WALK AROUND AND ALSO TO USE THE INCENTIVE SPIROMETRY Q HOUR WHEN AWAKE. PT VERBALIZED UNDERSTANDING WITH THE POC. IVF INFUSING ORDERED. CALL LIGHT WITHIN REACH.
--- NOTE | 2019-11-25 22:00 | NUR ---
MEDICATED PT EARLIER WITH DILAUDID ORDERED AND PER PT REQUEST. PT IS ASLEEP AT THIS TIME. VISIBLE CHEST RISE AND FALL NOTED. SAFETY MEASURES IN PLACED.
[2019-11-26] VITALS: BP 120/73
--- NOTE | 2019-11-26 | NUR ---
VITAL SIGNS STABLE, AFEBRILE, SATING 95% ON RA. NO COMPLAIN OF PAIN AT THIS TIME. PT ASLEEP WITH VISIBLE CHEST RISE AND FALL NOTED.
[2019-11-26] MEDS: HYDROmorphone 1 MG/ML AMP IVP PRN ×2 (01:01→07:34)
[2019-11-26] MEDS: SIMETHICONE 40 MG/0.6 ML PO PRN ×2 (02:13→12:53)
--- NOTE | 2019-11-26 02:21 | NUR ---
MEDICATED PT FOR PAIN AGAIN. PT AWAKE AND SITTING UP. CALLED C/O GAS PAIN, PRN MYLICON GIVEN ORDERED. PT VERBALIZED SHE GOT OUT OF BED AND WALKED AROUND THE ROOM ONCE. EDUCATED AGAIN ON HOW IMPORTANT FOR HER TO GET OUT OF BED AND WALK AROUND. PT VERBALIZED UNDERSTANDING.
--- NOTE | 2019-11-26 04:20 | NUR ---
PT ASLEEP AND NO COMPLAIN AT THIS TIME. ADMINISTERED ANTIBIOTIC ORDERED AND HUNG A NEW BAG OF IVF.
[2019-11-26] MEDS: NACL 0.9% 1,000 ML IV SCH (04:30)
[2019-11-26] MEDS: PIPERACILLIN/TAZOBACTAM 2.25 GM in DEXTROSE 5% 50 ML IV SCH ×2 (04:30→12:54)
[2019-11-26] MEDS: LACTATED RINGERS 1,000 ML IV SCH (05:38)
--- NOTE | 2019-11-26 06:19 | NUR ---
PT STABLE NO ACUTE EVENTS OVER NIGHT. NO COMPLAIN AT THIS TIME. NOT IN ANY DISTRESS. ALL NEEDS ATTENDED. CALL LIGHT WITHIN REACH. WILL ENDORSE THE PT TO THE ONCOMING RN FOR CONTINUITY OF CARE.
--- NOTE | 2019-11-26 07:37 | NUR ---
PT STABLE. ENDORSED THE PT TO THE ONCOMING RN FOR CONTINUITY OF CARE. SIGNING OFF.
--- NOTE | 2019-11-26 07:38 | NUR ---
RECEIVED BEDSIDE REPORT FROM SPOR[employer] BROADCASTING INTERNSHIP RN FOR CONTINUITY OF CARE. PT IS S/P LAP CHOLECYSTECTOMY WITH 4 LAP SITES, ALL C/D/I. NO BLEEDING NOTED. PT IS A/A/OX4, LAST MEDICATED FOR PAIN AT 0734. EDUCATED THE PT THAT SHE NEED TO AMBULATE AND ALSO TO USE THE INCENTIVE SPIROMETRY Q HOUR WHEN AWAKE. PT VERBALIZED UNDERSTANDING WITH THE POC. IVF INFUSING ORDERED. IV SITE INTACT, ASYMPTOMATIC AND PATENT. CALL LIGHT WITHIN REACH. WILL CONTINUE TO MONITOR PATIENT.
[2019-11-26 08:00] VITALS: BP 115/77
[2019-11-26] MEDS ORDERED: METHADONE 10 MG TAB PO SCH ×2 (09:00→10:00)
--- NOTE | 2019-11-26 10:02 | NUR ---
HAD THE PATIENT SPEAK OVER THE PHONE WITH PHARMACIST TO VERIFY HER METHADONE DOSE AND THE CLINIC INFORMATION. WILL GIVE PATIENT MEDICATION ONCE VERIFIED BY PHARMACIST.
[2019-11-26] MEDS ORDERED: CIPR500T4 PO (10:51)
--- NOTE | 2019-11-26 14:20 | NUR ---
DISCHARGE INSTRUCTIONS AND EDUCATION GIVEN TO PATIENT. PATIENT VERBALIZED UNDERSTANDING ABOUT TAKING ALL MEDS PRESCRIBED, FOLLOW UP WITH DR. WINTERS AND PCP, TAKE CARE OF SURGICAL SITE AND GO TO ER IF SIGNS OF INFECTION. IV REMOVED, ID BANDS CUT. PATIENT WILL NOW CHANGE INTO HER OWN CLOTHING TO BE DISCHARGE HOME WITH BOYFRIEND.
--- NOTE | 2019-11-26 14:40 | NUR ---
PATIENT AMBULATED SLOWLY OFF FLOOR ON STEADY GAIT TO BE DISCHARGED HOME WITH BOYFRIEND. PATIENT TOOK ALL HER BELONGINGS WIT HER. PATIENT IN STABLE CONDITION.
== END 2019-11-26 14:40 | disposition home or self-care (01) ==
LOC: MED 22:37 → MMU 11-24 03:07 → UNDOADMIN 11-24 03:07 → MMU 11-24 03:07
PROVIDERS: ADMIT Hospitalist; ATTEND Hospitalist
DX: K80.00 Calculus of gallbladder with acute cholecystitis without obstruction (principal); Z20.828 Contact with and (suspected) exposure to other viral communicable diseases; F17.200 Nicotine dependence, unspecified, uncomplicated; F11.10 Opioid abuse, uncomplicated
CPT/HCPCS: 36415; 47562; 71045; 74176; 76705; 80053; 82374; 83690; 84484; 85025; 85610; 86886; 86900; 86901; 87081; 87426; 88304; 93005; 96361; 96365; 96366; 96367; 96368; 96375; 96376; 99285; G0378; J0696; J1100; J1170; J1885; J2001; J2250; J2270; J2405; J2543; J2704; J3010; J3490; J7030; J7060; J7120; Q0092